=== PATIENT | female | born 1995 | race Hispanic/Latino ===

== ENCOUNTER 2020-06-24 09:28 | Inpatient (IN) | payer OTHER ==
[~2020-06-24 09:28] MED LIST: Bupivacaine 0.25% HCL 30 ML VIAL ONE
[2020-06-24 10:17] VITALS: BMI 32.4
[2020-06-24] MEDS ORDERED: Misoprostol 200 MCG TAB PR PRN (10:49)
[2020-06-24] MEDS ORDERED: Ibuprofen 800 MG TAB PO PRN (10:49)
[2020-06-24] MEDS ORDERED: Diphenoxylate HCl/Atropine Tablet PO PRN (10:49)
[2020-06-24] MEDS ORDERED: Acetaminophen 500 MG TAB PO PRN (10:49)
[2020-06-24] MEDS ORDERED: Methylergonovine 0.2 MG/ML VIAL IM PRN (10:49)
[2020-06-24] MEDS ORDERED: HYDROcodone/Acetaminophen 5/325 mg Tablet PO PRN (10:49)
[2020-06-24] MEDS ORDERED: Lidocaine 1% (PF) 30 ML VIAL SC PRN (10:49)
[2020-06-24] MEDS ORDERED: Ondansetron PF 4 MG/2 ML Vial IVP PRN ×2 (10:49→23:30)
[2020-06-24] MEDS ORDERED: Butorphanol Tartrate 1 MG/ML VIAL SLOW IVP PRN (10:49)
[2020-06-24] MEDS ORDERED: Promethazine HCl 25 MG/ML VIAL IM PRN ×2 (10:49→23:30)
[2020-06-24] MEDS ORDERED: hydrALAZINE 20 MG/ML VIAL SLOW IVP PRN (10:49)
[2020-06-24] MEDS ORDERED: Carboprost 250 MCG/ML AMP IM PRN (10:49)
[2020-06-24] MEDS ORDERED: NS w/ Oxytocin 30 units 500 ML IVPB PRN (10:59)
[2020-06-24] MEDS: Lactated Ringer's 1,000 ML IV SCH ×3 (11:05→23:25)
[2020-06-24] MEDS ORDERED: NS w/ Oxytocin 30 units 500 ML IVPB SCH ×2 (11:15)
[2020-06-24 11:35] LABS: Hemoglobin 12.7 g/dL (12.0-15.5); Mean Corpuscular HGB CONC 32.6 g/dL (32.0-36.0); Mean Corpuscular Hemoglobin 30.2 pg (27.0-33.0); Mean Corpuscular Volume 92.4 fl (81.6-98.3); Mean Platelet Volume 11.6 fl (7.4-10.4); Platelet Count 155 10x3/uL (150-450); Red Blood Cell (RBC) Count 4.21 10x6/uL (3.90-5.03); White Blood Cell (WBC) Count 8.1 10x3/uL (3.5-10.5)
[2020-06-24 12:00] LABS: Hep B Surf Ag Non-Reactive S/CO (NonReactive); Syphilis Antibody Nonreactive (Nonreactive); Syphilis Antibody Index 0.02 S/CO (<1.00 Non-Reactive)
[2020-06-24] MEDS: Misoprostol 100 MCG TAB VAG SCH ×3 (12:11→21:36)
[2020-06-24] MEDS ORDERED: Fentanyl 4 mcg/Bup 0.1% Cadd 100 ML ONE (22:48)
[2020-06-24] MEDS ORDERED: Acetaminophen 325 MG TAB PO PRN (23:30)
[2020-06-24] MEDS ORDERED: diphenhydrAMINE 50 MG/ML VIAL IVP PRN (23:30)
[2020-06-24] MEDS ORDERED: Communication Order-Pharmacy FS SCH (23:30)
[2020-06-24] MEDS ORDERED: Fentanyl 4 mcg/Bupivacaine 0.1% Cassette 100 ML EPIDURAL SCH (23:30)
[2020-06-24] MEDS ORDERED: Lactated Ringer's 500 ML IV PRN (23:30)
[2020-06-24] MEDS ORDERED: Naloxone HCl 0.4 mg/ml Vial IVP PRN ×2 (23:30)
[2020-06-24] MEDS ORDERED: ePHEDrine 50 MG/ML VIAL SLOW IVP PRN (23:30)
[2020-06-25 01:25] LABS: SARS-CoV-2 PCR NAA for Saliva Not Detected (NotDetected)
[2020-06-25] MEDS ORDERED: HYDROcodone/Acetaminophen 5/325 mg Tablet PO PRN ×2 (09:58)
[2020-06-25] MEDS ORDERED: Benzocaine-Menthol 82.5 ML CAN TOP PRN (09:58)
[2020-06-25] MEDS ORDERED: hydrALAZINE 20 MG/ML VIAL SLOW IVP PRN (09:58)
[2020-06-25] MEDS ORDERED: Ondansetron PF 4 MG/2 ML Vial IVP PRN (09:58)
[2020-06-25] MEDS ORDERED: Lanolin Ointment 7 GM TUBE TOP PRN (09:58)
[2020-06-25] MEDS ORDERED: Bisacodyl 10 MG SUPP PR PRN (09:58)
[2020-06-25] MEDS ORDERED: Promethazine HCl 25 MG/ML VIAL IM PRN (09:58)
[2020-06-25] MEDS ORDERED: Adacel (T-DAP) 0.5 ML SYRINGE IM ONE (09:58)
[2020-06-25] MEDS ORDERED: diphenhydrAMINE 25 MG CAP PO PRN (09:58)
[2020-06-25] MEDS ORDERED: Milk Of Magnesia 30 ML UDCUP PO PRN (09:58)
[2020-06-25] MEDS ORDERED: NS w/ Oxytocin 30 units 500 ML IV SCH (10:30)
[2020-06-25] MEDS: Ibuprofen 800 MG TAB PO SCH (22:24)
[2020-06-25] MEDS: Docusate Calcium (SURFAK) 240 MG CAP PO SCH (22:25)
[2020-06-26] MEDS: Ferrous Sulfate 325 MG TAB PO SCH ×3 (05:26→16:34)
[2020-06-26] MEDS: Ibuprofen 800 MG TAB PO SCH ×5 (05:26→21:35)
[2020-06-26] MEDS: Prenatal Vitamin 1 TAB PO SCH (08:25)
[2020-06-26] MEDS: Docusate Calcium (SURFAK) 240 MG CAP PO SCH ×2 (08:25→21:35)
[2020-06-27] MEDS: Ibuprofen 800 MG TAB PO SCH (05:57)
[2020-06-27 08:07] VITALS: BP 103/57; TEMP 98.1
[2020-06-27] MEDS: Prenatal Vitamin 1 TAB PO SCH (08:23)
[2020-06-27] MEDS: Docusate Calcium (SURFAK) 240 MG CAP PO SCH (08:23)
[2020-06-27] MEDS: Ferrous Sulfate 325 MG TAB PO SCH (08:42)
[2020-06-27] MEDS ORDERED: Measles/Mumps/Rubella 10 MCG/0.5 ML VIAL SC ONE (11:45)
== END 2020-06-27 13:15 | disposition home or self-care (01) | DRG 807 ==
LOC: CSHLD 09:28 → CSHPP 06-25 12:15
PROVIDERS: ADMIT Family Medicine; ATTEND Family Medicine
PROC: 10E0XZZ Delivery of Products of Conception, External Approach (ICD-10-PCS; principal; 2020-06-25)
PROC: 3E0P7VZ Introduction of Hormone into Female Reproductive, Via Natural or Artificial Opening (ICD-10-PCS; 2020-06-25)
PROC: 3E033VJ Introduction of Other Hormone into Peripheral Vein, Percutaneous Approach (ICD-10-PCS; 2020-06-25)
PROC: 0W8NXZZ Division of Female Perineum, External Approach (ICD-10-PCS; 2020-06-25)
DX: O80 Encounter for full-term uncomplicated delivery (principal); Z37.0 Single live birth; Z3A.40 40 weeks gestation of pregnancy; Z20.822 Contact with and (suspected) exposure to COVID-19
CPT/HCPCS: 51702; 85027; 86780; 86850; 86900; 86901; 87340; 87635; 90707; J2590; S0020; U0003; U0005

== ENCOUNTER 2023-08-05 13:34 | Emergency (ER) | payer SELFPAY | END 2023-08-05 14:56 | disposition home or self-care (01) | LOC: CSHERS 13:34 | DX: O20.0 Threatened abortion (principal); Z3A.01 Less than 8 weeks gestation of pregnancy | CPT/HCPCS: 99284 ==